=== PATIENT | female | born 1975 | race Caucasian/White ===

== ENCOUNTER → 2020-08-07 | Outpatient (CLI) | payer MEDICAID ==
[~2020-08-07] MED LIST: HARD NAILS 2.51 CAP PO; NATURAL E400 IU PO; NO HOME MEDICATIONS; NORCO 325 MG-51 TAB PO; OSCAL 500 TAB500 MG PO; PRIL40 PO; TAMOXIFEN CITRA20 MG PO; VICODIN 5/5001 UDTAB PO; VITAMINC1000TA PO; ZOVIRAX400 M1 PO
== END ==
LOC: COL.VAS 13:43
DX: C50.811 Malignant neoplasm of overlapping sites of right female breast (principal)

== ENCOUNTER → 2021-03-17 | Outpatient (CLI) | payer MEDICAID | LOC: MC.RAD 11:17 | DX: N63.10 Unspecified lump in the right breast, unspecified quadrant (principal) | CPT/HCPCS: A9541 ==

== ENCOUNTER 2021-03-18 08:36 | Observation (INO) | payer MEDICAID ==
[2021-03-18] VITALS (9 sets, daily range): BP systolic 115–126; BP diastolic 66–87; PULSE 61–111; TEMP 97.8–98.3
[~2021-03-18] VITALS: Ht 157.5 cm; Wt 54.0 kg
[~2021-03-18 08:36] MED LIST changes: -HARD NAILS 2.51 CAP PO; -NATURAL E400 IU PO; -NORCO 325 MG-51 TAB PO; -OSCAL 500 TAB500 MG PO; -PRIL40 PO; -TAMOXIFEN CITRA20 MG PO; -VITAMINC1000TA PO
[2021-03-18] MEDS ORDERED: TAMOXIFEN CITRA20 MG PO (10:06)
[2021-03-18] MEDS ORDERED: NATURAL E400 IU PO (10:06)
[2021-03-18] MEDS ORDERED: VITAMINC1000TA PO (10:07)
[2021-03-18] MEDS ORDERED: OSCAL 500 TAB500 MG PO (10:07)
[2021-03-18] MEDS ORDERED: HARD NAILS 2.51 CAP PO (10:08)
[2021-03-18] MEDS ORDERED: PRIL40 PO (17:15)
--- NOTE | 2021-03-18 17:30 | NUR ---
Pt recently to the floor from [place]. She is alert and although very drowsy. Her father is at the bedside. Oriented to the room as well as room service. Incision is well approximated with no redness or drainage. Two drains to bulb suction. Pt does have pain, reports it 3/10 and states it is achy. SCDs not on as pt is refusing because she is too hot. Pt reports that she is not thirsty and is not wanting anything to eat at this time. VSS
--- NOTE | 2021-03-18 19:00 | NUR ---
PT RESTING QUIETLY. NO DISTRESS. DRAIN IN PLACE DRAINING SMALL AMOUNT OF BLOODY RETURN. INCISION CDI. NO EVIDENCE OF PAIN.
[2021-03-19] VITALS (7 sets, daily range): BP systolic 97–114; BP diastolic 59–65; PULSE 51–77; TEMP 97.6–98.1
--- NOTE | 2021-03-19 09:31 | NUR ---
Follow-up visit; Patient says she is doing "ok" and thanked Aboriginal Education Worker Coordinator for checking on her again today following her surgical procedure. Patient appeared shy but glad Aboriginal Education Worker Coordinator stopped and expressed caring and kindness toward her.
--- NOTE | 2021-03-19 09:53 | NUR ---
Talked with pt this morning. She is feeling "sore" but glad to have it over with. She is "just wanting to get back to more normal things" and is hoping her hair will grow back to help that. We talked about support groups but she was not interested. Support provided.
--- NOTE | 2021-03-19 10:13 | NUR ---
ANU met with the patient to discuss discharge plan. The patient lives in [place] with her two daughters: Gloria ([id number]) and Natacha ([id number]). She reports independence with ADLs and does not have any DME. The patient's primary care provider is Olamide Diaz PA-C and she receives her medications from [facility] in . She reports no difficulties obtaining her meds. The patient does not have a DPOA-HC and she was not interested in completing one at this time. The patient states that she is still , but that she has been seperated from her for six years. She reports that she has tried to divorce him, but cannot find him for paperwork. The patient then has her two daughters. ANU informed her how her would still be her next of kin. The patient verbalized understanding, but reports that she is still not interested in completing a DPOA-HC at this time. The patient plans to return home with her daughters upon discharge. No additional needs at this time. *Discharge plan: home with daughters*
--- NOTE | 2021-03-19 12:42 | NUR ---
Pt continues to do well with minimal pain complaints. Ambulated in the haley with stand by assist. her father is at bedside. Pt awaiting lunch at this time
--- NOTE | 2021-03-19 15:00 | NUR ---
Educated pt on how to care for RAMSES drains. Demonstrated how to empty and measure the output. Pt had complaints of pain, pain medication given. No other needs,
--- NOTE | 2021-03-19 18:32 | NUR ---
Pt refuses dinner tonight, is having some nausea. Up ambulating in the hallways. Denies any pain. No needs at this time. Call light within reach.
--- NOTE | 2021-03-19 19:56 | NUR ---
RESTING COMFORTABLY IN BED. STILL EATING DINNER AND WATCHING TV. NO PAIN OR NAUSEA.
[2021-03-20 04:41] VITALS: BP 90/57; PULSE 69; TEMP 97.6
[2021-03-20 08:11] VITALS: BP 115/65; PULSE 69; TEMP 97.5
--- NOTE | 2021-03-20 09:36 | NUR ---
Follow-up visit; Patient smiled this morning as Tub Wash Operator wished her continued improvement in her health and God's blessings.
[2021-03-20] MEDS ORDERED: NORCO 325 MG-51 TAB PO (09:46)
--- NOTE | 2021-03-20 10:00 | NUR ---
Pt doing well today. She is tolerating regular diet. Pain well controlled with oral pain medication. She does get up and ambulates with standby assist. Dr Barajas has been in and pt has orders for discharge. Pt is not sure when her dad will be coming, but he will come and pick her up. Review of drain care done at this time.
[2021-03-20 13:02] VITALS: BP 116/68; PULSE 72; TEMP 97.5
--- NOTE | 2021-03-20 13:08 | NUR ---
Reviewed discharge instructions with pt to include follow up appointment, prescription and drain care. Pt verbalized understanding. Pt awaiting her father to pick her up, but she has contacted him
== END 2021-03-20 13:20 | disposition home or self-care (01) ==
LOC: SDCO 08:36 → SURG 08:36 → SDCO 11:00 → SURG 16:51 → SDCO 17:00 → SURG 03-20 13:20
PROVIDERS: ADMIT Surgery
DX: C50.911 Malignant neoplasm of unspecified site of right female breast (principal); C77.3 Secondary and unspecified malignant neoplasm of axilla and upper limb lymph nodes; K21.9 Gastro-esophageal reflux disease without esophagitis; M19.90 Unspecified osteoarthritis, unspecified site; F32.A Depression, unspecified; F41.9 Anxiety disorder, unspecified; F17.210 Nicotine dependence, cigarettes, uncomplicated; Z79.899 Other long term (current) drug therapy; Z92.21 Personal history of antineoplastic chemotherapy; Z90.13 Acquired absence of bilateral breasts and nipples; Z83.3 Family history of diabetes mellitus
CPT/HCPCS: OP; A4648; C1789; J1170; J1644; J2405; J7030; J7120; Q4122; Q9968

== ENCOUNTER → 2021-04-21 | Outpatient (CLI) | payer MEDICAID ==
[~2021-04-21] VITALS: Ht 157.5 cm; Wt 55.0 kg
[~2021-04-21] MED LIST changes: +HARD NAILS 2.51 CAP PO; +NATURAL E400 IU PO; +NORCO 325 MG-51 TAB PO; +OSCAL 500 TAB500 MG PO; +PRIL40 PO; +TAMOXIFEN CITRA20 MG PO; +VITAMIN A10k PO; +VITAMINC1000TA PO
[2021-04-21 06:43] VITALS: BP 118/78; PULSE 93; TEMP 97.7
[2021-04-21 08:15] VITALS: BP 109/72; PULSE 79
== END ==
LOC: COL.RAD 06:10
DX: C50.111 Malignant neoplasm of central portion of right female breast (principal); L76.34 Postprocedural seroma of skin and subcutaneous tissue following other procedure

== ENCOUNTER → 2021-05-04 | Outpatient (CLI) | payer MEDICAID ==
[~2021-05-04] VITALS: Ht 157.5 cm; Wt 54.8 kg
[2021-05-04 07:09] VITALS: BP 118/71; PULSE 90; TEMP 97.6
[2021-05-04 08:02] VITALS: BP 123/76; PULSE 80
== END ==
LOC: COL.RAD 06:43
DX: C50.911 Malignant neoplasm of unspecified site of right female breast (principal)